=== PATIENT | female | born 1980 | race Caucasian/White ===

== ENCOUNTER 2022-11-15 06:44 | Emergency (ER) | payer OTHER, SELFPAY ==
[2022-11-15 07:28] VITALS: BP 144/86; PULSE 84; RESP 18; TEMP 36.4; O2SAT 99; BMI 25.1
--- NOTE | 2022-11-15 08:51 | ED_ITS ---
HPI - Female Genitourinary General Chief complaint: Urogenital Problems, Female Stated complaint: Bartlolin abscess, fever Time Seen by Provider: 11/15/22 08:10 Source: patient and family Mode of arrival: ambulatory History of Present Illness HPI Narrative: 42-year-old female with a 6 day history of tenderness and swelling in the right labial area. She was evaluated 2 days ago for primary care team. They diagnosed a Bartholin's cyst and started her on Bactrim. They referred her to Gynecology and she had an appointment scheduled tomorrow to have the abscess examined and drained. She developed fever today and is feeling generally mildly unwell. No dizziness, hypotension or altered mental status. She does not have any other localizing symptoms of infection like abdominal pain, dysuria, cough, body aches or headache. No skin rashes noted. She has not noted any drainage from the affected area. Swelling does seem to be worsening in her opinion. Has not tried Sitz baths or other topical treatments. Past medical history notable for anxiety and hypertension. Medications reviewed and accurate per noted in our EMR. No drug allergies. Socially she is a nonsmoker with no risk factors for STD. ROS is negative times 12 systems with the exception of the gynecological symptoms as described above. Related Data Home Medications Medication Instructions Recorded Confirmed bupropion HCl 150 mg 24 hr tablet, mg PO 11/15/22 extended release citalopram 40 mg tablet mg 11/15/22 hydrochlorothiazide 25 mg tablet mg 11/15/22 linaclotide 290 mcg capsule mcg 11/15/22 (Linzess) propranolol 40 mg tablet mg 11/15/22 sulfamethoxazole 800 tab 11/15/22 mg-trimethoprim 160 mg tablet Allergies Allergy/AdvReac Type Severity Reaction Status Date / Time No Known Drug Allergies Allergy Verified 11/15/22 07:28 Exam Const: Vital Signs, click to edit/add: Vital Signs - 24 hr 11/15/22 07:28 Temperature 97.6 F Pulse Rate [Right Pulse Oximeter] 84 Respiratory Rate 18 Blood Pressure [Ri ght Upper Arm] 144/86 H Pulse Oximetry 99 Oxygen Delivery Me thod Room Air Documenting provider has reviewed patient's vital signs: yes Common normals: no apparent distress General appearance: cooperative, comfortable and well kempt HENMT: Common normals: normocephalic Head and scalp: normocephalic Mouth: oral and palatal mucosa normal Throat: posterior oropharynx normal Eye: Common normals: EOMs intact bilaterally and conjunctivae normal Conjunctiva: conjunctiva(e) normal Neck & C-Spine: Common normals: full ROM and no lymphadenopathy Resp: Common normals: normal respiratory effort, no use of accessory muscles and clear to auscultation bilaterally Effort & inspection: able to speak in complete sentences Auscultation: clear to auscultation bilaterally Cardio: Common normals: regular rate, regular rhythm, S1 normal heart sound, S2 normal heart sound, no murmurs and peripheral pulses 2+ throughout Rate: regular rate Rhythm: regular rhythm Heart sounds: S1 normal and S2 normal Peripheral pulses: pulses 2+ throughout GI: Common normals: Normal to inspection, nondistended, normoactive bowel champ nds present, soft to palpation, non-tender, no hepatosplenomegaly and no masses Palpation: soft and no hepatosplenomegaly : Other: External genitalia with some mild swelling of the right mom's area noted on external inspection. Labia are gently parted revealing swelling the size of a villalobos cheney on the right introitus. It is exquisitely tender, fluctuant mildly warm to the touch. No fluid can be expressed from the drainage ducts. Remainder vaginal mucosa, urethral meatus, clitoral herndon and pubic region appear normal. No bruising or signs of trauma. Extremity: Common normals: normal capillary refill and no pedal edema Neuro: Speech: speech normal Motor exam: no movement abnormalities noted Psych: Appearance: well kempt Mood and affect: euthymic mood Insight: insight good Judgement: judgment good Skin: Common normals: no rashes or lesions noted General skin exam: no rashes or lesions noted Course Vital Signs Vital signs: Initial Vital Signs Temperature 97.6 F 11/15/22 07:28 Temperature Source Temporal Artery Scan 11/15/22 07:28 Pulse Rate 84 11/15/22 07:28 Respiratory Rate 18 11/15/22 07:28 Blood Pressure 144/86 H 11/15/22 07:28 Blood Pressure Mean 105 11/15/22 07:28 Blood Pressure Position Sitting 11/15/22 07:28 Pulse Oximetry 99 11/15/22 07:28 Oxygen Delivery Method 11/15/22 07:28 Vital Signs Temperature 97.6 F 11/15/22 07:28 Pulse Rate 84 11/15/22 07:28 Respiratory Rate 18 11/15/22 07:28 Blood Pressure 144/86 H 11/15/22 07:28 Pulse Oximetry 99 11/15/22 07:28 Oxygen Delivery Method 11/15/22 07:28 Temperature 97.6 F 11/15/22 07:28 Pulse Rate 84 11/15/22 07:28 Respiratory Rate 18 11/15/22 07:28 Blood Pressure 144/86 H 11/15/22 07:28 Pulse Oximetry 99 11/15/22 07:28 Oxygen Delivery Method 11/15/22 07:28 MDM - Female Genitourinary MDM Narrative Medical decision making narrative: Counseled patient that I think it is likely about 50 50 that this is the source of her fever. Since she is not exhibiting signs of sepsis or any severe infection, I do not recommend additional investigation for alternate etiology. She was in agreement to this. We discussed drainage of the abscess versus waiting for specialty appointment tomorrow, she would like to proceed with drainage. Procedure: Porcelain abscess drainage. Verbal consent obtained. Area was examined and it was determined that the affected area is about 2 cm tall and about 1 cm wide on the right labial wall, in area expected. This is around 10:00 a.m. on the vaginal opening was the most fluctuant area. This was cleansed with alcohol wipe and then injected with 1 mL of 1% lidocaine without epinephrine. This had good anesthesia. Is wiped again with alcohol wipe and then a 2 mm incision using an 11 blade was made with copious drainage of brown purulent sanguinous fluid. The gland was gently milked downward to express all remaining fluid. She tolerated this well. Culture was collected. Was hemostatic at the time of procedure cessation, left open to drain. Patient counseled on management, Sitz baths, Tylenol and ibuprofen as needed for pain. Wound culture will be collected. Continue course of Bactrim. Okay to cancel appointment for tomorrow. Let us know if not improving in 3 days. Did have relief of pressure feeling following drainage. Discharge Plan Discharge Clinical Impression: Abscess of right Bartholin's gland Patient Disposition: Home w/ Parent or Adult Condition: Improved Instructions: Incision and Drainage (ED) Additional Instructions: This that this was a Bartholin's abscess. These are very common. A 2 mm incision was made in the side of the gland, this was left to drain into the vaginal opening. It is likely that you will still have some bloody, purulent and watery drainage from this area for the next 1-2 days. We actually do want to continue draining. I would like for you to do what is called a Sitz bath which is basically where you so care bottom in a bathtub and or a bucket of warm clean soapy water for about 15 minutes 2 times per day for the next 36 hours remote more drainage. You may noticed increased bleeding when you do this, as this will help express that fluid. I would like for you to do this right away when you get home. If you notice significant bleeding, using gauze or toilet paper, apply some pressure to the inside right part of the vagina for about 10 minutes and the bleeding should stop. Any severe bleeding would be really unexpected and we would want you to come back to the ER. Remember that a few drops in a large amount of water can turn the entire body of water red. It is okay to use Tylenol and/or ibuprofen for pain. I do want you to continue using your antibiotic. You may cancel your drainage appointment for tomorrow. No intercourse and specifically nothing else inside the vagina for the next 3 days. You will notice tenderness for 1 week. As we also discussed, I think this being the etiology of your fever is 50-50. I do not notice any other localizing signs of a bacterial infection. If you have severe progressive symptoms, seek re-evaluation. You may resume all typical activities tomorrow. Activity Level: No Restrictions Discharge Diet: Regular Prescriptions: No Action citalopram 40 mg tablet Label Comments: TAKE ONE TABLET BY MOUTH EVERY DAY IN THE MORNING. sulfamethoxazole-trimethoprim 800-160 mg tablet Label Comments: TAKE ONE TABLET BY MOUTH TWICE DAILY FOR 7 DAYS propranolol 40 mg tablet Label Comments: take 1 tablet by mouth once daily as needed for performance anxiety. hydrochlorothiazide 25 mg tablet Label Comments: TAKE ONE TABLET BY MOUTH ONE TIME DAILY bupropion HCl 150 mg tablet extended release 24 hr PO Label Comments: Take 1 Tablet (150 mg) by mouth once daily. Linzess 290 mcg capsule Label Comments: TAKE ONE CAPSULE BY MOUTH ONE TIME DAILY Follow Up/Referrals: Provider,Not a Local [Referring] - Stand Alone [facility]: [facility] Inst[facility]
--- NOTE | 2022-11-20 17:12 | PC.NURSE ---
called patient at home and is on Bactrim 800/160 mg orally BID x 7 days. feeling better and taken the last dose of antibiotic today.
== END 2022-11-15 09:10 | disposition home or self-care (01) ==
LOC: ED 08:56
PROVIDERS: Emergency Provider Family Medicine; PCP Physician Assistant
DX: N75.1 Abscess of Bartholin's gland (principal)
CPT/HCPCS: 56405; 56420; 87070; 87186; 99283

== ENCOUNTER 2024-11-16 10:13 | Day surgery (SDC) | payer BC, SELFPAY ==
[2024-11-16] VITALS (18 sets, daily range): BP systolic 96–112; BP diastolic 55–70; PULSE 64–81; RESP 14–18; TEMP 36.1–36.9; O2SAT 94–97; BMI 23.5
--- OUTSIDE RECORDS SUMMARY | 2024-11-16 10:20 | XMS_ITS | Clinical Summary ---
Author Organization [facility] Address [place], [place] [address] Care Team Providers Care Supervisor Tank Cleaning Name Role Phone NarcisoLila PsyD, LP Unavailable [phone] Elba Lindsay DO Primary Care Provider [phone] Allergies No known active allergies Medications rizatriptan (MAXALT HEAD OF HOUSEKEEPING) 10 mg disintegrating tablet Take 1 tablet by mouth as needed at onset of headache, may repeat at 2 hours, max 2 TABLETS per 24 hours, try to not take more than 10 days 08/21/20 21 Active ketoconazole 2% topical (NIZORAL) creamIndications:R jace and nonspecific skin eruption Apply topically to affected area(s) 2 times daily. To rash areas around face/scalp. 60 g 04/29/20 22 Active propranoloL (INDERAL) 40 mg tabletIndications: Performance anxiety TAKE ONE TABLET BY MOUTH DAILY NEEDED for performance anxiety. 30 Tablet 1 05/27/20 23 Active Additional Information Patient not taking.Reported on 11/02/2024 triamcinolone (ARISTOCORT; KENALOG) 0.1 % creamIndications:D ermatitis Apply topically to affected area(s) two times daily. For 14 days 80 g 08/05/20 23 Active Hydrocortisone 2.5 % topical solutionIndication s:Contact dermatitis of scalp Apply topically to affected area(s) two times daily. 30 mL 08/05/20 23 Active hydroCHLOROthiazid e 25 mg tabletIndications: HTN (hypertension) TAKE ONE TABLET BY MOUTH ONE TIME DAILY 90 Tablet 2 05/26/20 24 Active buPROPion (Wellbutrin XL) 150 mg Extended-Release tabletIndications: Moderate episode of recurrent major depressive disorder (HC) Take 1 Tablet (150 mg) by mouth once daily. 90 Tablet 1 06/12/20 24 Active citalopram (CELEXA) 40 mg tabletIndications: Moderate episode of recurrent major depressive disorder (HC) Take 1 Tablet (40 mg) by mouth once daily. 90 Tablet 1 06/12/20 24 Active linaCLOtide (Linzess) 290 mcg cap capsuleIndications :Chronic idiopathic constipation TAKE ONE CAPSULE BY MOUTH ONE TIME DAILY 90 Capsule 1 07/15/20 24 Active docusate (COLACE) 100 mg capsule TAKE ONE CAPSULE BY MOUTH TWICE DAILY* 03/09/20 23 025 Discontin ued(*Med complete/ Regimen complete/ Level of care change) ibuprofen (ADVIL; MOTRIN) 600 mg tablet TAKE ONE TABLET BY MOUTH FOUR TIMES DAILY NEEDED* 03/09/20 23 025 Discontin ued(*Med complete/ Regimen complete/ Level of care change) Active Problems Problem Noted Date Diagnosed Date Chronic constipation 01/25/2019 Performance anxiety 09/03/2016 Attention deficit hyperactiv ity disorder (ADHD), predominantly inattentive type 06/11/2016 Anxiety 02/05/2015 Moderate episode of recurrent major depressive d isorder 01/16/2008 Allergic rhinitis, cause unspecified 08/25/2007 Resolved Problems Problem Noted Date Diagnosed Date Resolved Date Supervision of other normal 02/11/2012 09/17/2012 Overview (07/18/2012): It's a boy! scheduled August 02. 0700 Stephanie Shankar D.O. 07/18/2012 10:01 AM Supervision of normal first 01/28/2010 01/04/2012 Supervision of other normal 11/04/2009 11/04/2009 Depressive disorder, not elsewhere classified 08/25/20 07 01/16/2008 Encounters Date Type Department Care Team Description 11/09/2024 8:00 AM TOY ASSEMBLER Procedure Only [facility] [address] [facility] [place] [address] Sadia Piña L Ac Acupuncture 11/09/2024 Travel 11/02/2024 7:30 AM TOY ASSEMBLER Office Visit [facility] [address] [facility] [place] [address] Guillermo Andrade MD Preoperative Exam (Hysterectomy///[address] [place] [address]/Dr. Bowser ) 11/02/2024 Travel 10/23/2024 9:00 AM TOY ASSEMBLER Procedure Only [facility] [address] [facility] [place] [address] Sadia Piña L Ac Acupuncture 10/23/2024 Travel 10/17/2024 3:00 PM TOY ASSEMBLER Nutrition/Dieticia n [facility] [address] [place] [address] Medical Nutrition Therapy 10/17/2024 Travel 10/13/2024 2:00 PM TOY ASSEMBLER Procedure Only [facility] [address] [place] [address] Sadia Piña L Ac Acupuncture 10/12/2024 Travel 10/09/2024 8:00 AM TOY ASSEMBLER Office Visit [facility] [address] [place] [address] Bryanna Bueno, UYEN Medication Management (Things are just busy) 10/09/2024 Travel 10/04/2024 Travel 09/14/2024 8:00 AM TOY ASSEMBLER Procedure Only [address] [address] Sadia Piña L Ac Acupuncture 09/13/2024 Travel 09/07/2024 8:00 AM TOY ASSEMBLER Procedure Only [address] [address] Sadia Piña L Ac Acupuncture 09/06/2024 Travel 08/28/2024 9:15 AM CDT Office Visit [facility] [address] [place] [id number] Puja Abdullahi, AERIAL GUNNER SUPERINTENDENT Individual Therapy 08/28/2024 Travel 08/24/2024 8:00 AM CDT Procedure Only [address] [address] Sadia Piña L Ac Acupuncture 08/24/2024 Travel 08/17/2024 8:00 AM CDT Procedure Only [facility] [address] [place] [address] Ayana Jaimie Fallon Ac Acupuncture 08/16/2024 Travel from Last 3 Months Immunizations Name Administration Dates Next Due COVID-19 vaccine (Moderna 100mcg/0.5mL) PF, MDV 10/01/2021 COVID-19 vaccine (Pfizer-Bio NTech 30mcg/0.3mL) 12YO+ BIVALENT PF, MDV 08/19/2022 COVID-19 vaccine (Pfizer-Bio NTech 30mcg/0.3mL) PF, MDV 02/24/2021,02/03/2021 Influenza A (H1N1), Inactivated 09/03/2009 Influenza, IIV3 (Age 6-35 mos) 08/18/2012,2010 Influenza, IIV3 (Age >=3 years) 07/21/20 11,09/04/2010,09/03/2009,2008 Influenza, IIV4 08/05/2023, 2,07/17/2021,2019,07/28/2019,08/08/2018,12/21/2017,1 Tdap 12/21/2017,12/29/2007 Family History Medical History Relation Name Comments Aortic aneurysm Father abdominal, n ot ruptured Aortic dissection Father Heart Disease Father heart valve re placed Heart failure Father as a result of the dissection Hypertension Father Kidney failure Father due to the me ds he had to take for his heart Stroke Father related to the dissection Diabetes Maternal Grandfather Psychiatric illness Mother depressi on/anxiety Cancer Paternal Grandfather rare sk in cancer Diabetes Paternal Grandfather at age 80 Hypertension Paternal Grandmother Psychiatric illness Sister depressi on Anesthesia Problem No Family History Blood Disease No Family History Cancer-breast No Family History Cancer-colon No Family History Cancer-ovarian No Family History Relation Name Status Comments Father Maternal Grandfather Mother Paternal Grandfather Paternal Grandmother Sister Social History Tobacco Use Types Packs/Day Years Used Date Smoking Tobacco: Never Smokeless Tobacco: Never Tobacco Cessation:Counseling Given: Yes Alcohol Use Standard Drinks/Week Comments Yes 2 (1 standard drink = 0.6 oz pur e alcohol) x3 weekly [facility] Utilities Answer Date Recorded Do you have trouble paying f or utilities (for example, heat, electricity, water, phone)? Yes 08/10/2024 PHQ-2 Answer Date Recorded PHQ-2 TOTAL SCORE 3 10/09/2024 Social Connections Answer Date Recorded Do you often feel lonely or isolated from those around you? 0 08/10/2024 Alcohol Use Answer Date Recorded How often do you have a drink containing alcohol ? 3 03/16/2023 Average Number of Drinks Not on file 023 Frequency of Binge Drinking Not on file 03/01 Financial Resource Strain Answer Date R ecorded Difficulty of Paying Living Expenses 3 08/10/2024 Difficulty of Paying Living Expenses Not on file 08/10/2024 Food Insecurity Answer Date Recorded Do you worry your food will run out before you are able to buy more? 1 08/10/2024 Transportation Needs Answer Date Record ed Does lack of transportation keep you from medica l appointments? 1 08/10/2024 Does lack of transportation keep you from work, meetings or getting things that you need? 1 08/10/2024 Housing Stability Answer Date Recorded What is your housing situation today? 1 08/10/2024 Comments No Sex and Gender Information Value Date Recorded Sex Assigned at Not on file Legal Sex Female 7:25 AM TOY ASSEMBLER Gender Identity Not on file Sexual Orientation Not on file Occupation Industry Job Start Date Job End Date Not on file Not on file Not on file Not on file Obstetrics History Para Term AB IAB SAB Ectopic Multiple Livin g Live Births 2 1 1 1 Date Outcome GA Total Labor Labor/2nd/3rd Weight Sex Type Anes PTL Salena A1 A5 Name Clin Comments:System Genera radha. Please review and update details. Term 4.05 kg (8 lb 15 oz) M CS-LT ranv Epidur al Eberha rd Last Filed Vital Signs Vital Sign Reading Time Taken Comments Blood Pressure 126/86 11/02/2024 7:36 AM TOY ASSEMBLER Pulse 66 11/02/2024 7:36 AM TOY ASSEMBLER Temperature 36.7 C (98.1 F) 11/02/2024 7:36 AM TOY ASSEMBLER Respiratory Rate 16 11/02/2024 7:36 AM TOY ASSEMBLER Oxygen Saturation 100% 11/02/2024 7:36 AM TOY ASSEMBLER Inhaled Oxygen Concentration - - Weight 66 kg (145 lb 8 oz) 11/02/2024 7:36 AM CS T Height 169.1 cm (5' 6.58) 11/02/2024 7:36 AM CS T Body Mass Index 23.08 11/02/2024 7:36 AM TOY ASSEMBLER Plan of Treatment Upcoming Encounters Date Type Department Care Team (Late st Contact Info) Description 12/14/2024 7:30 AM TOY ASSEMBLER Office Visit [facility] [address] [place] [address] Bryanna Bueno NP [address] [place] [address] 01/11/2025 2:00 PM CDT Telemedicine [facility] [address] [place] [address] Liliana Hatfield, MACHINE RIVETER [address] [place] [address] [place] [address] 01/23/2025 3:00 PM CDT Nutrition/Vascular Neurologist [facility] [address] [place] [address] [place] [address] Health Maintenance Due Date Last Done Comments COVID-19 vaccine series ( season) 2024 08/19/2022, 10/01/2021, 02/24/2021, Additional history exists Influenza for age 9-49 07/02/2024 , 08/19/2022, 07/17/2021, Additional history exists Depression screening for age 12+ 10/09/2025 10/09/2024, 08/28/2024, 07/10/2024, Additional history exists BMI (ht and wt on same day) for age 18+ 11/02/2025 11/02/2024, 02/26/2023, 11/13/2022, Additional history exists Pap test for age 21-65 03/13/2026 , 03/13/2021, 12/21/2017, Additional history exists Tetanus booster 12/21/2027 12/21/2017, 12/29/2007 HIV for age 15-65 Completed 01/04/2012, 09/13/2009 Tdap Completed 12/21/2017, 12/29/2007 Hepatitis C screening for age 18-79 Completed 01/14/2023 Pneumococcal series for age 6-49 Aged Out No longer eligible based on patient's age to complete this topic Procedures Procedure Name Priority Date/Time Associated Diagnosis Comments HEMOGLOBIN Routine 11/02/2024 8:09 AM TOY ASSEMBLER Pre-op evaluation BASIC METABOLIC PANEL Routine 11/02/2024 8:09 AM TOY ASSEMBLER Pre-op evaluation HTN (hypertension) ACUPUNCTURE PLAN OF CARE Routine 10/23/2024 9:07 AM TOY ASSEMBLER Self-referral Chronic abdominal pain ACUPUNCTURE PLAN OF CARE Routine 10/13/2024 1:59 PM TOY ASSEMBLER Self-referral Chronic abdominal pain ACUPUNCTURE PLAN OF CARE Routine 09/14/2024 8:00 AM TOY ASSEMBLER Self-referral Chronic abdominal pain ACUPUNCTURE PLAN OF CARE Routine 09/07/2024 8:01 AM TOY ASSEMBLER Self-referral Chronic abdominal pain ACUPUNCTURE PLAN OF CARE Routine 08/24/2024 8:02 AM CDT Self-referral Chronic abdominal pain ACUPUNCTURE PLAN OF CARE Routine 08/17/2024 8:02 AM CDT Self-referral Chronic abdominal pain LC HCV ANTIBODY RFX TO QUANT PCR Routine 01/14/2023 1:30 PM CDT Need for hepatitis C screening test DRUPAL PROGRAMMER THIN PREP PAP SCREEN IMAGED Routine 03/13/2021 11:53 AM CDT Screening for malignant neoplasm of cervix ANTI HIV 1/2 Routine 01/04/2012 11:29 AM TOY ASSEMBLER Supervision of other normal from Last 3 Months or Most Recently Relevant to Health Maintenance Results * HEMOGLOBIN (11/02/2024 8:09 AM TOY ASSEMBLER) HEMOGLOBIN 14.6 11.7 - 15.5 g/dL [facility] Blood BLOOD SPECIMEN / Unknown 11/02/2024 8:09 AM TOY ASSEMBLER 11/02/2024 8:10 AM TOY ASSEMBLER Guillermo Andrade MD HEMATOLOGY Final Result [facility] [address] [place] [address], [facility] [address] [place] [address] * (ABNORMAL) BASIC METABOLIC PANEL (11/02/2024 8:09 AM TOY ASSEMBLER) Pathologist [facility] GLUCOSE 103(H) 65 - 99 mg/dL [facility] Comment: Fasting reference interval For someone without known diabetes, a glucose value between 100 and 125 mg/dL is consistent with prediabetes and should be confirmed with a follow-up test. UREA NITROGEN (BUN) 12 7 - 25 mg/dL [facility] CREATININE 0.65 0.50 - 0.99 mg/dL [facility] EGFR 112 > OR = 60 mL/min/1. 73m2 [facility] BUN/CREATININE RATIO SEE NOTE: 6 - 22 (calc) [facility] Comment: Not Reported: BUN and Creatinine are within reference range. SODIUM 136 135 - 146 mmol/L [facility] POTASSIUM 4.3 3.5 - 5.3 mmol/L [facility] CHLORIDE 97(L) 98 - 110 mmol/L [facility] CARBON DIOXIDE 30 20 - 32 mmol/L [facility] ELECTROLYTE BALANCE 9 7 - 17 mmol/L (calc) [facility] CALCIUM 9.7 8.6 - 10.2 mg/dL [facility] Blood BLOOD SPECIMEN / Unknown 11/02/2024 8:09 AM TOY ASSEMBLER 11/02/2024 8:10 AM TOY ASSEMBLER Guillermo Andrade MD CHEMISTRY Final Result [facility] [address] [place] [address], [place] [phone] [facility] [address] [place] [address] * LC HCV ANTIBODY RFX TO QUANT PCR (01/14/2023 1:30 PM CDT) Pathologist [facility] HCV Ab Non Reactive Non Reactive 01/16/2023 1:10 PM CDT [facility] Blood BLOOD SPECIMEN / Unknown Venipuncture / Unknown 01/14/2023 1:30 PM CDT 01/14/2023 1:32 PM CDT Narrative [facility] - 01/16/2023 1:10 PM CDT Performed at: [address] [place] [id number] Folder Seamer: Javed Live MD, Phone: [phone] [facility] Final Resu lt [facility] ([facility]) [address] [place] [address], * DRUPAL PROGRAMMER THIN PREP PAP SCREEN IMAGED (03/13/2021 11:53 AM CDT) Pathologist [facility] Case Report Gynecologic Cytology Report Case: [id number] Authorizing Provider: Vicky Jean-Baptiste PA Collected: 03/13/2021 1153 Ordering Location: [facility] Received: 03/13/2021 1153 Clinic First Screen: Baccam, Minie Specimen: DRUPAL PROGRAMMER ThinPrep Vial Screening, Cervical 03/24/2021 4:05 PM CDT [facility]- ENTRAL LABORATORY INTERPRETATION/ RESULT NEGATIVE FOR INTRAEPITHELIAL LESION OR MALIGNANCY (NIL) (none) 03/24/2021 4:05 PM CDT [facility]-C ENTRAL LABORATORY IMEN ADEQUACY Satisfactory for evaluation Endocervical component present 03/24/2021 4:05 PM CDT [facility] HPV REQUEST HPV and PAP 03/24/2021 4:05 PM CDT [facility] Date of LMP 02/26/21 03/24/2021 4:05 PM CDT [facility] Last Pap Date 12/21/17 03/24/2021 4:05 PM CDT [facility] Last Pap Result NIL 4:05 PM CDT [facility] Abnormal Pap or [place]ott Bx in last 5 years No 03/24/2021 4:05 PM CDT [facility] Menstrual Status Regular Periods 03/24/2021 4:05 PM CDT [facility] [place] Bx Done Today No 03/24/2021 4:05 PM CDT [facility] Additional Information None given 03/24/2021 4:05 PM CDT [facility] Comment: Cytology is screened at [facility] - [address], [place] [address] and [facility] - [address] [place] [address] and [facility] - [address] [place] [address] Interpreted at [facility] - [address], [place] [address] Automated Review Successful 03/24/2021 4:05 PM CDT [facility] Comment:Specimen processed s uccessfully by automated senior communications engineer device, ThinPrep Imaging System, [employer] ANCILLARY TESTING DRUPAL PROGRAMMER HPV Ordered, Please see separate report 03/24/2021 4:05 PM CDT [facility] Note The pap test is a screening technique, not a diagnostic procedure. It is used primarily to screen for squamous cancers and precursor lesions. Published studies have shown that it is subject to both false negative and false positive results. The pap test should not be used as the sole means to diagnose or exclude pre-malignant and malignant lesions. 03/24/2021 4:05 PM CDT [facility]-C ENTRAL LABORATORY Other (Cervical) Non-Blood / Unknown 03/13/2021 11:53 AM CDT 03/13/2021 11:53 AM CDT us Vicky YIN PATHOLOGY/CYTOLOGY Final R esult [facility]-CENTRAL LABORATORY [address] [place] [address], * ANTI HIV 1/2 (01/04/2012 11:29 AM TOY ASSEMBLER) ANTI HIV 1/2 Non-reacti ve [facility] Blood specimen (specimen) BLOOD SPECIMEN / Unknown 01/04/2012 11:29 AM TOY ASSEMBLER 01/04/2012 11:24 AM TOY ASSEMBLER us Stephanie Shankar DO SEND OUTS Final Resul t [facility] INTERNAL ZIP [id number] [place] [address] from Last 3 Months or Most Recently Relevant to Health Maintenance Insurance [facility] Care Teams Supervisor Tank Cleaning Relationship Specialty Start Date End Date lEba Lindsay DO [address] [facility] [place] [address] PCP - General Family Practice 08/05/23 Lila Stuart, Meron, LP [address] [facility] [place] [phone] Psychologist Psychology 07/08/21
--- NOTE | 2024-11-16 10:54 | W.PM.H&PU ---
History & Physical Update History & Physical Update H&P Reviewed and patient assessed: No changes noted
[2024-11-16 10:58] LABS: Hemoglobin* 13.3 gm/dL (12.0-16.0)
[2024-11-16] MEDS: SODIUM CHLORIDE 0.9 % (FLUSH) 10 ML SYRINGE IVF (11:01)
[2024-11-16] MEDS: 0.9 % SODIUM CHLORIDE 500 ML 500 ML 100 ML IV (11:03)
[2024-11-16 11:12] LABS: Ur HCG Qualitative* Negative (Negative)
[2024-11-16] MEDS: CEFAZOLIN 2 GM INJ IVP (11:25)
--- NOTE | 2024-11-16 11:35 | P.ANES_ITS ---
Anesthesia Charges Start Date/Time Anesthesia Start Date: 11/16/24 Anesthesia Start Time: 11:20 Stop Date/Time Anesthesia Stop Date: 11/16/24 Anesthesia Stop Time: 13:50 Coding CPT Codes CPT Codes: ANESTH SURG LOWER ABDOMEN - 54850 ([id number]) P2 - PATIENT W/MILD SYST DISEASE, QK - HEAVY DUTY PRESS OPERATOR 2-4 CNCRNT ANES PROC, QX - AUTOTRANSFUSIONIST SVC W/ MD MED DIRECTION
--- NOTE | 2024-11-16 11:35 | P.NB_ITS ---
Nerve Block Nerve Block Time Seen by Provider: 11:25 Date Seen: 11/16/24 Type of block requested by surgeon for post-operative analgesia: TAP Side: bilateral Time out performed: Yes Verification of patient name: Yes Verification of date of : Yes Site marking: site marked Name of person performing procedure: Elias Continuous monitoring Was continuous monitoring of O2 sat, B/P, director of cardiac cath lab, recorded every 15 minutes?: Yes Procedure Checklist: sterile prep, needles and gloves Ultrasound guided. Images saved: Yes Medications given in 5ml increments after negative aspiration: Marcaine %: 0.25 mL: 30 Needle gauge: 20 and Exparel mL: 10 Patient tolerated procedure well: Yes Additional comments: Needle noted between internal oblique and transversus abdominus. Local spread visualized Block Charges Block Charge (with Pro Fee): TAP Bilateral Use of Ultrasound Machine for Block: Yes- US Guidance/pain block
--- NOTE | 2024-11-16 11:35 | W.ANESCHARGE ---
Anesthesia Charges Start Date/Time Anesthesia Start Date: 11/16/24 Anesthesia Start Time: 11:20 Stop Date/Time Anesthesia Stop Date: 11/16/24 Anesthesia Stop Time: 13:50 Coding CPT Codes CPT Codes: ANESTH SURG LOWER ABDOMEN - 49599 ([id number]) P2 - PATIENT W/MILD SYST DISEASE, QK - INDUSTRIAL MACHINE OPERATOR 2-4 CNCRNT ANES PROC, QX - FOURTH MATE SVC W/ MD MED DIRECTION
--- NOTE | 2024-11-16 13:39 | P.PCN_ITS ---
Procedure Note Time Seen by Provider: 13:39 Date Seen: 11/16/24 Date of procedure: 11/16/24 Will [facility] bill your pro fee for this procedure?: Yes Procedure: Preoperative diagnosis: 44-year-old 2 para 2 with menorrhagia unresponsive to endometrial ablation. Postoperative diagnosis: Same, stage I endometriosis, left ovarian cyst consistent with ovulation. Procedure: Total laparoscopic hysterectomy, left ovarian cyst aspiration, diagnostic cystoscopy. Anesthesia: General endotracheal, local Surgeon: Hyacinth Zhao MD Assist: Kenyatta Hood MD Estimated blood loss: 50 mL. IV Fluid: 500 mL Urine output: 200 mL clear urine at the end of the procedure Drains: Alfaro to gravity Specimen: Uterus to pathology. Findings: On exam under anesthesia: The uterus was mid position, approximately 8 week size, mobile without nodularity or masses palpable. Adnexa without mass or fullness palpable. On laparoscopy: Normal-appearing uterus. Caprice sharp both fallopian tubes were surgically absent. The right ovary was normal. The left ovary had an approximately 3-4 cm serous cyst likely secondary to ovulation. Stage I endometriosis with 3 powder-burn implant in the right pelvic sidewall. Normal appearing appendix, liver and gallbladder. Procedure: Shelley was taken to the operating room where general anesthetic was found to be adequate. She was placed in the dorsal lithotomy position and an exam under anesthesia was performed with findings stated above. She was then prepped and draped in a normal sterile manner. A Alfaro catheter was placed. Attention was turned to placing the laparoscope so that the uterus could be visualized while dilating the cervix and placing the uterine manipulator. There was concern for likely stenosis of the cervix secondary to the patient never having had a vaginal delivery and she is status post an endometrial ablation also increasing the risk for scar tissue within the endometrium making placement of the uterine manipulator more challenging. All incisions were injected with 0.5% Marcaine prior to incising the skin. A vertical, infraumbilical, 1 cm incision was made. The lateral aspects of the incision were grasped with 2 Allis clamps and the pelvic skin grasped and tented up. A #11mm trocar was then placed under direct visualization. In the by infra abdominal placement verified with direct visualization. The abdomen was then insufflated with approximately 3 L of CO2 gas to a pressure of 15 mmHg. Attention was then turned to placing the uterine manipulator. A bivalve speculum was placed in the vaginal canal. A long Allis clamp was p laced on the anterior lip of the cervix, in the uterus sounded to 8 cm. A large VCare uterine manipulator was then placed. The Allis clamp and speculum were removed from the cervix. Attention was then turned to performing the laparoscopic portion of the procedure. Attention was then turned to performing the hysterectomy. Both ureters were visualized in the normal position bilaterally. The left side of the hysterectomy was performed using the LigaSure dissecting forceps. The 1st pedicles were starting with the broad ligament that was cauterized and and bisected. In sequence show pedicles were formed to divide the utero-ovarian ligament. Then sequential pedicles were made through the broad ligament. The posterior leaf of the broad ligament was then divided and sequential pedicles ca rried down to the level of the VCare cup. The anterior leaf of the broad ligament was then divided down to the level of the anterior aspect of the VCare cup and a bladder flap created. The uterine vessels were then skeletonized. The uterine vessels were then cauterized and divided. Then excess tissue was cleared over the top of the VCare cup using the dissecting forceps. The right side of the hysterectomy were then performed in a similar manner. The Ligasure Valleylab pen with the spatula attachment was then used to perform the colpotomy incising around the VCare cup. The uterus was removed and the fundus placed in the vaginal canal to maintain insufflation. The vaginal cuff was then reapproximated using 2-0 V lock suture in a running manner. All the pedicles and vaginal cuff were then closely visualized and hemostasis obtained with bipolar cautery using the PowerSeal dissecting forceps or the Regulus The[employer]lab pen with the spatula. The the uterus was removed from the vaginal canal and sent to pathology. The Alfaro catheter was briefly removed. A diagnostic cystoscopy was performed using normal saline as the insufflation medium. The dome of the bladder was noted to be without injury and no evidence of any sutures from the vaginal cuff causing injury. Normal urine flow was noted through both ureteral orifices. Fluorescein IV was used to visualize the urine more easily. The Alfaro catheter was then replaced. Attention was then returned to the abdomen where hemostasis was verified. The left ovarian cyst was incised with the Valleylab pen with the spatula attachment. The her serous fluid was aspirated with the suction mobile application architect and hemostasis of the incision obtained with bipolar cautery using the [employer]ulus [employer] pen. The fascia in the umbilical incision was reapproximated using 0 Vicryl on a UR 6 needle. All trocars were removed under direct visualization. CO2 gas was allowed to escape the infraumbilical port prior to its removal. All skin incisions were re-approximated using 4-0 Monocryl in a running subcuticular manner, Exofin skin adhesive gel and adhesive bandages placed. The patient tolerated this procedure well. Sponge, lap and instrument counts were correct x2 at the end of the procedure and the patient was taken to the recovery area in stable condition. The patient received 2gm IV ancef prior to the start of the procedure. Patient was given 30 mg of Toradol prior to being awakened from anesthesia.
--- NOTE | 2024-11-16 13:50 | P.ANES_ITS ---
Anesthesia Charges Start Date/Time Anesthesia Start Date: 11/16/24 Anesthesia Start Time: 11:20 Stop Date/Time Anesthesia Stop Date: 11/16/24 Anesthesia Stop Time: 13:50 Coding CPT Codes CPT Codes: ANESTH SURG LOWER ABDOMEN - 10694 ([id number]) P2 - PATIENT W/MILD SYST DISEASE, QK - MERCHANDISING PROFESSOR 2-4 CNCRNT ANES PROC, QX - SASH CLAMP OPERATOR SVC W/ MD MED DIRECTION
--- NOTE | 2024-11-16 13:50 | W.ANESCHARGE ---
Anesthesia Charges Start Date/Time Anesthesia Start Date: 11/16/24 Anesthesia Start Time: 11:20 Stop Date/Time Anesthesia Stop Date: 11/16/24 Anesthesia Stop Time: 13:50 Coding CPT Codes CPT Codes: ANESTH SURG LOWER ABDOMEN - 14542 ([id number]) P2 - PATIENT W/MILD SYST DISEASE, QK - IRRIGATOR 2-4 CNCRNT ANES PROC, QX - TRIAL EXAMINER SVC W/ MD MED DIRECTION
[2024-11-16] MEDS: LACTATED RINGERS 1000 ML 1,000 ML 40 ML IV (15:24)
[2024-11-16] MEDS: ACETAMINOPHEN 500 MG TABLET 1000 MG PO (15:32)
--- NOTE | 2024-11-16 19:25 | PC.NURSE ---
[facility] Hours: [id number] Pt arrived to unit from PACU stable. VSS through recovery, pain manageable with PO meds. Pt eating and drinking. GIBRAN SILVA, MIGEL'huber peña post back flow. Pt voided in toilet. Stable gait. Independent in the room
[2024-11-16] MEDS: KETOROLAC 30 MG/ML inj IVP (19:35)
[2024-11-17 00:32] VITALS: RESP 16; O2SAT 96
[2024-11-17] MEDS: KETOROLAC 30 MG/ML inj IVP (01:15)
[2024-11-17 01:18] VITALS: BP 112/66; PULSE 68; RESP 16; TEMP 37.1; O2SAT 97
[2024-11-17] MEDS: IBUPROFEN 600 MG TABLET PO ×2 (05:47→11:15)
[2024-11-17 06:43] LABS: Hemoglobin* 11.2 gm/dL (12.0-16.0)
--- NOTE | 2024-11-17 08:22 | PM.GYNPNPO ---
PAVING STONE INSTALLER - A/P Assessment and plan (1) Status post laparoscopic hysterectomy: Status: Acute Assessment and Plan: 1. Discharge home today. 2. Restrictions reviewed. 3. RTC in 2 weeks and 6 weeks for postop visits. Postoperative Procedures: Procedures Operation Date: 11/16/24 11:40 Actual Procedure Side Surgeon p M/S-Total Laparoscopic Hysterectomy, Diagnostic Cystoscopy, LEFT OVARIAN CYST ASPIRATION Hyacinth Zhao MD Time Spent With Patient Time: Total time spent is greater than 50% in coordination of care (as documented) at patient's floor/unit and/or counseling patient: Time with patient: less than 15 minutes PAVING STONE INSTALLER- PN:Subj Post-Op Subjective Time Seen by Provider: 08:05 Date Seen: 11/17/24 Post Operative Details: Post-operative day number 1: status post TLH, aspiration of L ovarian cyst, diagnostic cystoscopy Subjective: patient has no complaints, pain is well controlled, ambulating well, voiding without difficulty, patient is tolerating oral intake, passing flatus and patient desires discharge PAVING STONE INSTALLER-PN: Obj Exam Physical Exam: Vital signs: Temp Pulse Resp BP Pulse Ox O2 Del Method 98.7 F 68 16 112/66 97 Room Air 11/17/24 01:18 11/17/24 01:18 11/17/24 01:18 11/17/24 01:18 11/17/24 01:18 11/17/24 01:18 Narrative: General: Sent, , well groomed woman in no acute distress. Vital signs: Included in her electronic medical record. Heart: Regular rate and rhythm without gallop, rub or murmur. Chest: Clear to auscultation bilaterally. Abdomen: Soft, nontender, nondistended with normal bowel sounds. Incisions: All clean, dry and intact with skin skin adhesive gel and sutures. Extremities: No edema or pain. Urinary Catheter Management: Urethral: Cath placed during this visit: no PAVING STONE INSTALLER - PN: Obj Data Labs Labs: Laboratory Results - last 24 hr 11/16/24 11/16/24 11/16/24 10:20 10:45 10:56 Hgb 13.3 Urine HCG, Qual Negative Blood Type B Positive Antibody Screen NEGATIVE 11/17/24 06:10 Hgb 11.2 L Urine HCG, Qual Blood Type Antibody Screen
[2024-11-17 08:26] VITALS: BP 123/67; PULSE 81; RESP 16; TEMP 36.7; O2SAT 98
[2024-11-17] MEDS: buPROPion XL 150 MG TABLET PO (11:16)
[2024-11-17] MEDS: OXYCODONE 5 MG TABLET PO (11:16)
[2024-11-17] MEDS: CITALOPRAM HYDROBROMIDE 20 MG TABLET 40 MG PO (11:16)
[2024-11-17] MEDS: hydroCHLOROthiazide 25 MG TABLET PO (11:17)
--- NOTE | 2024-11-17 11:34 | PC.NURSE ---
pt a&o x4 able to follow instructions, dc instructions covered and patient acknowledges understanding. no nausea, vomitting. All questions answered
== END 2024-11-17 11:36 | disposition home or self-care (01) ==
LOC: OR 10:16 → MEDSURG 10:20
PROVIDERS: Anesthesiology; PCP Family Medicine; Visit Provider Obstetrics & Gynecology
PROC: 0UT94ZZ Resection of Uterus, Percutaneous Endoscopic Approach (ICD-10-PCS; CPT 58570; principal; 2024-11-16 11:30)
DX: N92.0 Excessive and frequent menstruation with regular cycle (principal); N80.351 Endometriosis of the right pelvic sidewall, unspecified depth; N83.202 Unspecified ovarian cyst, left side; G89.18 Other acute postprocedural pain; I10 Essential (primary) hypertension
CPT/HCPCS: 58570; 49322; 00840; 36415; 64488; 76942; 81025; 85018; 86850; 86900; 86901; 88307; A4314; A9270; J0330; J0665; J0666; J0690; J1100; J1630; J1885; J2405; J2704; J3010; J3475; J3490; J7030; J7120

== ENCOUNTER 2025-10-11 15:55 | Outpatient (CLI) | payer BC, SELFPAY ==
--- NOTE | 2025-10-11 16:00 | CRLHL7_ITS ---
For Patients: As a result of the Century Cures Act, medical imaging exams and procedure reports are released immediately into your electronic medical record. You may view this report before your referring provider. If you have questions, please contact your health care provider. INDICATION: Endometriosis, unspecified. COMPARISON: 12/09/2016 TECHNIQUE: 2D suarez-scale and color Doppler images were acquired of the pelvis using a transabdominal and transvaginal approach. Transvaginal imaging performed to better visualize the ovaries. FINDINGS: The uterus is absent. The right ovary measures 4.8 x 2.5 x 4.2 cm in size and the left ovary is obscured by bowel gas. The right ovary demonstrates normal arterial and venous blood flow on color Doppler analysis. There are no suspicious fluid collections within the cul-de-sac. IMPRESSION: Normal right ovary. No adnexal mass or pelvic free fluid. Dictated by Mendel Fleming MD @ 10/12/2025 6:43:11 AM (Electronically Signed)
== END 2025-10-11 15:56 | disposition home or self-care (01) ==
LOC: US 15:55
PROVIDERS: PCP Family Medicine; Visit Provider Obstetrics & Gynecology
DX: N80.9 Endometriosis, unspecified (principal); Z90.710 Acquired absence of both cervix and uterus
CPT/HCPCS: 76830; 76856

== ENCOUNTER 2025-10-30 08:52 | Day surgery (SDC) | payer BC, SELFPAY ==
[2025-10-30 09:14] VITALS: BMI 21.4
[2025-10-30 09:40] VITALS: BP 121/83; PULSE 68; RESP 16; TEMP 37.2; O2SAT 98
[2025-10-30] MEDS: LACTATED RINGERS 1000 ML 1,000 ML 100 ML IV ×2 (09:42→12:05)
[2025-10-30] MEDS: SODIUM CHLORIDE 0.9 % (FLUSH) 10 ML SYRINGE IVF (09:42)
[2025-10-30] MEDS: SILVER NITRATE APPLICATOR 1 EACH STICK..EA. 5 EACH TOPICAL (12:10)
[2025-10-30 12:15] VITALS: BP 124/79; PULSE 88; RESP 16; TEMP 36.6; O2SAT 99
--- NOTE | 2025-10-30 12:19 | P.ANES_ITS ---
Anesthesia Charges Start Date/Time Anesthesia Start Date: 10/30/25 Anesthesia Start Time: 11:36 Stop Date/Time Anesthesia Stop Date: 10/30/25 Anesthesia Stop Time: 12:20 Coding CPT Codes CPT Codes: ANESTH VAGINAL PROCEDURES - 80211 ([id number]) P2 - PATIENT W/MILD SYST DISEASE, QZ - DATABASES SOFTWARE CONSULTANT SVC W/O MANAGER OF HOSPITAL BY
--- NOTE | 2025-10-30 12:19 | W.ANESCHARGE ---
Anesthesia Charges Start Date/Time Anesthesia Start Date: 10/30/25 Anesthesia Start Time: 11:36 Stop Date/Time Anesthesia Stop Date: 10/30/25 Anesthesia Stop Time: 12:20 Coding CPT Codes CPT Codes: ANESTH VAGINAL PROCEDURES - 18874 ([id number]) P2 - PATIENT W/MILD SYST DISEASE, QZ - SENIOR EMBEDDED SOFTWARE ENGINEER SVC W/O OCCASIONAL BABYSITTER BY
[2025-10-30 12:30] VITALS: BP 116/71; PULSE 75; RESP 16; O2SAT 99
[2025-10-30 12:45] VITALS: BP 120/74; PULSE 73; RESP 16; O2SAT 99
--- NOTE | 2025-10-30 12:55 | W.PM.GYNPROC ---
Procedure Note Time Seen by Provider: 13:27 Date of procedure: 10/30/25 Will [facility] bill your pro fee for this procedure?: Yes Pre-op diagnosis: 1. Vaginal bleeding from granulation tissue status post hysterectomy Post-op diagnosis: 2. Same Procedure: 1. Exam under anesthesia 2. Excision of vaginal granulation tissue Anesthesia: MAC and local Complications: None Surgeon: Shraddha Camacho MD Estimated blood loss (mL): 0 IV fluids (mL): 1,000 Pathology: specimen obtained, sent to pathology (Vaginal granulation tissue/ possible polyps) Condition: stable Disposition: floor Findings: Pelvic exam: Mons normal, clitoris normal, urethral meatus normal. Labia minora and majora normal in appearance bilaterally. Perineum and anus normal appearance. Vaginal introitus normal appearance. Vaginal pink and well rugated with scant white discharge. 1 x 1 cm granulation tissue on vaginal cuff, friable. Bimanual exam reveals intact vaginal cuff with granulation tissue that is very tender to palpation. No palpable adnexal masses or tenderness. Procedure Description: Procedure: Shelley was taken to the operating where conscious sedation was found to be adequate. She was placed in the dorsal lithotomy position. An exam under anesthesia was performed with findings stated above. She was then prepped and draped in normal sterile manner. A weighted speculum and [place] were placed in the vaginal canal for visualization. Granulation tissue noted at the vaginal cuff towards the left ankle. Long Allis used to grasp the granulation tissue at the base. With a twisting motion, granulation tissue was excised intact. Silver nitrate used at the base defect. Excellent hemostasis noted. The patient tolerated the procedure well. Sponge, lap and instruments counts were correct at the end of the procedure. The patient was awakened from anesthesia and taken to the recovery area in stable condition. Surgical debrief performed and specimen reviewed at the end of the procedure.
[2025-10-30 13:00] VITALS: BP 117/64; PULSE 73; RESP 16; O2SAT 99
[2025-10-30 13:15] VITALS: BP 106/68; PULSE 79; RESP 16; O2SAT 98
--- NOTE | 2025-10-30 13:17 | SUR.PHASEII ---
Dr. Camacho into see pt. Reviewed d/c instructions with pt and . All questions answered. Pt verbalized ready for discharge. Tolerated coffee and toast.
== END 2025-10-30 13:23 | disposition home or self-care (01) ==
LOC: OR 08:53
PROVIDERS: PCP Family Medicine; Visit Provider Obstetrics & Gynecology
PROC: 0UQG0ZZ Repair Vagina, Open Approach (ICD-10-PCS; CPT 17250; principal; 2025-10-30 10:15)
DX: N93.8 Other specified abnormal uterine and vaginal bleeding (principal); N89.8 Other specified noninflammatory disorders of vagina; Z90.710 Acquired absence of both cervix and uterus
CPT/HCPCS: 17250; 00940; 81025; A9270; J1100; J2250; J2405; J2704; J3010; J3490; J7120